=== PATIENT | male | born 2000 | race Caucasian/White ===

== ENCOUNTER 2022-04-20 18:33 | Inpatient (IN) | payer OTHER, SELFPAY ==
--- NOTE | ~2022-04-20 | US_ITS ---
EXAMINATION: US ABDOMEN LIMITED CLINICAL INFORMATION: Gallstones, elevated bilirubin. COMPARISON: None TECHNIQUE: Real-time imaging of the right upper quadrant abdominal viscera. FINDINGS: PANCREAS: Visualized portions unremarkable. LIVER: Unremarkable. GALLBLADDER: Multiple small dependent calcified gallstones without mural thickening or pericholecystic fluid. COMMON BILE DUCT: Normal in caliber measuring up to 0.4 cm in diameter. No intraluminal abnormality. RIGHT KIDNEY: 10.8 cm. Unremarkable. FREE FLUID: None. US/US abdomen limited IMPRESSION: 1. Cholelithiasis without evidence for acute cholecystitis. 2. No significant common bile duct dilatation to suggest choledocholithiasis. No other significant abnormality.
--- NOTE | ~2022-04-20 | CT_ITS ---
EXAMINATION: CT ABDOMEN AND PELVIS WITH CONTRAST CLINICAL INFORMATION: Abdominal pain with no positive Howard's sign COMPARISON: None TECHNIQUE: Multidetector volumetric images were obtained from the superior aspect of the liver through the pubic symphysis following administration 85 mL of Omnipaque 350 intravenous contrast. Sagittal and coronal reformatted images were obtained on the technologist's workstation. Oral contrast: No This CT examination was performed using dose optimization techniques as appropriate, variously including the following: *Automated exposure control *Adjustment of mA and/or kV according to patient size (this includes techniques or standardized protocols for targeted exams where dose is matched to indication/reason for exam; i.e. extremities or head) *Use of iterative reconstruction technique DLP: 973 mGy-cm FINDINGS: LUNG BASES: The visualized lung bases are unremarkable. LIVER, GALLBLADDER, AND BILIARY TREE: The liver is normal in size, shape, and attenuation. No focal hepatic lesion or biliary ductal dilatation is present. There are multiple radiopaque dependent gallstones. No wall thickening seen. PANCREAS: Unremarkable. SPLEEN: Unremarkable. ADRENAL GLANDS: Unremarkable. KIDNEYS AND URETERS: The kidneys are normal in size, shape, and attenuation. No hydronephrosis, hydroureter, or calculi seen. No perinephric stranding. BLADDER: Unremarkable. GASTROINTESTINAL TRACT: There is scattered stool and gas seen throughout the colon without significant distention. The small bowel loops are normal caliber. Appendix is normal caliber. No free fluid or free air seen. ABDOMINAL WALL: No significant hernia is appreciated. LYMPH NODES: There are small shotty retroperitoneal lymph nodes visualized. VASCULAR: Unremarkable. PELVIC VISCERA: There is no free air or free fluid. The prostate gland is normal size. No abnormal pelvic or inguinal lymphadenopathy. OSSEOUS STRUCTURES: Unremarkable. CT/CT abdomen pelvis w IV con IMPRESSION: Cholelithiasis without wall thickening. Mild constipation. Fleischner guidelines were followed.
[2022-04-20 18:40] VITALS: BP 144/93; PULSE 87; RESP 18; TEMP 36.7; O2SAT 97; BMI 40.7
--- NOTE | 2022-04-20 18:40 | ED_ITS ---
HPI - General Adult General Chief complaint: Abdominal Pain <CHRIS Dowd - Last Filed: 04/20/22 18:41> Stated complaint: Sharp abdominal pain/ SOB. from hamburger <CHRIS Dowd - Last Filed: 04/20/22 18:41> Time Seen by Provider: 04/20/22 19:17 <CHRIS Dowd - Last Filed: 04/20/22 18:41> Source: patient <Frances Walker NP - Last Filed: 04/20/22 22:24> Mode of arrival: ambulatory <Frances Walker NP - Last Filed: 04/20/22 22:24> Limitations: no limitations <Frances Walker NP - Last Filed: 04/20/22 22:24> History of Present Illness HPI narrative: 22-year-old male presents with 3 hours of right upper quadrant abdominal pain. Pain started after eating a cheeseburger. He states that he has never had pain like this before, also reports intermittent episodes of yellow brown diarrhea. Does not report any fevers or chills <Frances Walker NP - Last Filed: 04/20/22 22:24> Onset (ago): hour(s) (3 hours) <Frances Walker NP - Last Filed: 04/20/22 22:24> Location: abdomen <Frances Walker NP - Last Filed: 04/20/22 22:24> Radiation: non-radiation <Frances Walker NP - Last Filed: 04/20/22 22:24> Severity: moderate <Frances Walker NP - Last Filed: 04/20/22 22:24> Severity scale (1-10): 8 <Frances Walker NP - Last Filed: 04/20/22 22:24> Quality: aching <Frances Walker NP - Last Filed: 04/20/22 22:24> Pain Consistency: constant <Frances Walker NP - Last Filed: 04/20/22 22:24> Relieving factors: none <Frances Walker NP - Last Filed: 04/20/22 22:24> Exacerbating factors: eating and movement <Frances Walker NP - Last Filed: 04/20/22 22:24> Associated symptoms: denies other symptoms <Frances Walker NP - Last Filed: 04/20/22 22:24> Treatments prior to arrival: none <Frances Walker NP - Last Filed: 04/20/22 22:24> Related Data Home medications: Home Medications Medication Instructions Recorded Confirmed No Known Home Meds 04/20/22 04/20/22 <CHRIS Dowd - Last Filed: 04/20/22 18:41> Allergies/adverse reactions: Allergies Allergy/AdvReac Type Severity Reaction Status Date / Time No Known Allergies Allergy Verified 04/20/22 18:42 <CHRIS Dowd - Last Filed: 04/20/22 18:41> Review of Systems Review of Systems: Constitutional: No Fever, No Chills Cardiovascular: No Chest Pain, No SOB Respiratory: No Cough, No Dyspnea Gastrointestinal: No Nausea, No Vomiting, positive Diarrhea, positive right upper quadrant abdominal Pain Genitourinary: No Dysuria, No Hematuria Musculoskeletal: No joint pain, No Myalgias, No Joint Swelling Skin: No Skin lacerations, No rash Neuro: No Weakness, No Dizziness, No Headache <Frances Walker NP - Last Filed: 04/20/22 22:24> Yes all other systems are reviewed and are negative <Frances Walker NP - Last Filed: 04/20/22 22:24> [facility] Past Medical History Attestation statement: The following information was validated with the patient. <Frances Wakler NP - Last Filed: 04/20/22 22:24> Source: old records reviewed <Frances Walker NP - Last Filed: 04/20/22 22:24> Social History Social History: Social History Advance Directives: No Advance Directives Information Provided: No <CHRIS Dowd - Last Filed: 04/20/22 18:41> Physical Exam ED Vital Signs: Vital Signs - 24 hr 04/20/22 18:40 04/20/22 20:12 04/20/22 20:14 Temperature 98.1 F Pulse Rate 87 73 72 Respiratory Rate 18 Blood Pressure 144/93 H 142/75 H 138/66 Pulse Oximetry 97 Oxygen Delivery Method Room Air 04/20/22 20:14 04/20/22 20:15 04/20/22 22:14 Temperature 98.1 F Pulse Rate 72 83 Respiratory Rate 18 18 Blood Pressure 138/66 134/65 Pulse Oximetry 97 Oxygen Delivery Method Room Air BMI result Body Mass Index 40.7 <CHRIS Dowd Last Filed: 04/20/22 18:41> Vital Signs - 24 hr 04/20/22 18:40 04/20/22 20:12 04/20/22 20:14 Temperature 98.1 F Pulse Rate 87 73 72 Respiratory Rate 18 Blood Pressure 144/93 H 142/75 H 138/66 Pulse Oximetry 97 Oxygen Delivery Method Room Air 04/20/22 20:14 04/20/22 20:15 04/20/22 22:14 Temperature 98.1 F Pulse Rate 72 83 Respiratory Rate 18 18 Blood Pressure 138/66 134/65 Pulse Oximetry 97 Oxygen Delivery Method Room Air BMI result Body Mass Index 40.7 <EVETTE Albert Last Filed: 04/20/22 22:24> Appearance: Alert. Oriented X3. Mild distress. Eyes: Pupils equal, round and reactive to light. Sclera nonicteric. ENT: Pharynx normal. Neck: Normal inspection. Neck supple. CVS: Normal heart rate and rhythm. Pulses normal. Respiratory: No respiratory distress. Breath sounds normal. Abdomen: Soft and positive Howard, negative McBurney's. No distention or rigidity. Skin: Skin warm and dry. Normal skin color. Normal skin turgor. Extremities: No lower extremity edema. Gait well-balanced well coordinated. Neuro: No motor deficit. No sensory deficit. Cranial nerves 2-12 intact. <Frances Walker NP - Last Filed: 04/20/22 22:24> Course Course Course Narrative: RME performed by Ambar Wagner PA-C. Patient is a 22 year old male presenting to the emergency department with epigastric pain. Patient states that he air-fried a hamburger, ate it, and immediately had epigastric pain that radiates to the right side. Lab work ordered. Patient placed back in the waiting room pending results and room availability. <CHRIS Dowd Last Filed: 04/20/22 18:41> RME performed by Ambar Wagner PA-C. Patient is a 22 year old male presenting to the emergency department with epigastric pain. Patient states that he air-fried a hamburger, ate it, and immediately had epigastric pain that r adiates to the right side. Lab work ordered. Patient placed back in the waiting room pending results and room availability. 22-year-old male presents with right upper quadrant abdominal pain for the past 3 hours, started after eating a cheeseburger. He has not had abdominal pain like this in the past, also reports yellow brown diarrhea over the past 3 days. Physical exam indicates a positive Howard's, negative McBurney's, no distention or rigidity. Will order CT scan of abdomen and pelvis. Labs indicate an elevated white count of 15.8, bili 2.5, AST 43, ALT 42. L fluids infusing at this time. 21:30 CT scan indicates cholelithiasis without cholecystitis. Considering patient's elevated white count, will discuss with Dr. Hi on-call. Ordered for ceftriaxone, morphine, lactic and cultures. I do not believe this patient is septic at this time, heart rate 83, temperature 98.1 degrees, elevated bili AST ALT consistent with cholelithiasis. Discussion with Dr. Hi, Dr. Hi feels that this is more Gastroenterology as there is a obstruction at the ampullary Vater. Discussion with Dr. Pabon, plan is for admission with MRCP ERCP. 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 I did discuss this in detail with the patient, patient agrees with plan of care for admission. <Frances Walker [employer] - Last Filed: 04/20/22 22:24> Consultations Consultation #1: [place] <Frances Walker NP - Last Filed: 04/20/22 22:24> Time: 21:37 <Frances Walker NP - Last Filed: 04/20/22 22:24> Consultation #2: Cm <Frances Walker NP - Last Filed: 04/20/22 22:24> Time: 21:44 <Frances Walker NP - Last Filed: 01/27/23 22:24> Consultation #3: Mario <Frances Walker NP - Last Filed: 04/20/22 22:24> Time: 22:00 <Frances Walker NP - Last Filed: 04/20/22 22:24> Medications Administered Discontinued Medications Generic Name Dose Route Start Last Admin Trade Name Freq PRN Reason Stop Dose Admin Al Hydroxide/Mg Hydroxide 30 ml 04/20/22 19:23 04/20/22 20:21 Magnesium Hydrox/Alum Hydrox 30 Ml Oral.Susp PO 04/20/22 19:24 30 ml ONCE ONE Administration Belladonna Alkaloids/Phenobarbital 10 ml 04/20/22 19:23 04/20/22 20:21 Phenobarb/Hyoscy/Atropine/Scop 10 Ml Elixir PO 04/20/22 19:24 10 ml ONCE ONE Administration Sodium Chloride 1,000 mls @ 999 mls/hr 04/20/22 21:00 04/20/22 21:19 Ns IVCONT 04/20/22 22:00 999 mls/hr .Q1H1M NYA Administration Ceftriaxone Sodium 1 gm/ 50 mls @ 100 mls/hr 04/20/22 21:34 04/20/22 22:14 Sodium Chloride IV 04/20/22 22:03 100 mls/hr ONCE ONE Administration Iohexol 100 ml 04/20/22 20:50 04/20/22 20:51 Iohexol 350 Mg/Ml 100 Ml Infus..Btl IV 04/20/22 20:51 85 ml ONCE ONE Administration Lidocaine HCl 15 ml 04/20/22 19:23 04/20/22 20:20 Lidocaine Hcl Viscous 2 % 15 Ml Solution MUCOUS MEM 04/20/22 19:24 15 ml ONCE ONE Administration Morphine Sulfate 4 mg 04/20/22 21:29 04/20/22 22:14 Morphine Sulfate 4 Mg/Ml Cartridge IVPUSH 04/20/22 21:30 4 mg ONCE ONE Administration Protocol <CHRIS Dowd - Last Filed: 04/20/22 18:41> Medications Administered Discontinued Medications Generic Name Dose Route Start Last Admin Trade Name Druq PRN Reason Stop Dose Admin Al Hydroxide/Mg Hydroxide 30 ml 04/20/22 19:23 04/20/22 20:21 Magnesium Hydrox/Alum Hydrox 30 Ml Oral.Susp PO 04/20/22 19:24 30 ml ONCE ONE Administration Belladonna Alkaloids/Phenobarbital 10 ml 04/20/22 19:23 04/20/22 20:21 Phenobarb/Hyoscy/Atropine/Scop 10 Ml Elixir PO 04/20/22 19:24 10 ml ONCE ONE Administration Sodium Chloride 1,000 mls @ 999 mls/hr 04/20/22 21:00 04/20/22 21:19 Ns IVCONT 04/20/22 22:00 999 mls/hr .Q1H1M NYA Administration Ceftriaxone Sodium 1 gm/ 50 mls @ 100 mls/hr 04/20/22 21:34 04/20/22 22:14 Sodium Chloride IV 04/20/22 22:03 100 mls/hr ONCE ONE Administration Iohexol 100 ml 04/20/22 20:50 04/20/22 20:51 Iohexol 350 Mg/Ml 100 Ml Infus..Btl IV 04/20/22 20:51 85 ml ONCE ONE Administration Lidocaine HCl 15 ml 04/20/22 19:23 04/20/22 20:20 Lidocaine Hcl Viscous 2 % 15 Ml Solution MUCOUS MEM 04/20/22 19:24 15 ml ONCE ONE Administration Morphine Sulfate 4 mg 04/20/22 21:29 04/20/22 22:14 Morphine Sulfate 4 Mg/Ml Cartridge IVPUSH 04/20/22 21:30 4 mg ONCE ONE Administration Protocol <Frances Walker NP - Last Filed: 04/20/22 22:24> Medical Decision Making Differential Diagnosis Differential Diagnoses: The differential diagnosis associated with the presentation includes <Frances Walker NP - Last Filed: 04/20/22 22:24> Cholelithiasis, cholecystitis, GERD, acute abdomen <Frances Walker NP - Last Filed: 04/20/22 22:24> Admission/Observation Consideration of admission/observation: Escalation of care including admission/observation considered <Frances Walker NP - Last Filed: 04/20/22 22:24> Admission required <Frances Walker NP - Last Filed: 04/20/22 22:24> Consult Healthcare Provider Management of the patient was discussed with: Hospitalist and Moveman <Frances Walker NP - Last Filed: 04/20/22 22:24> Lab Data MDM Lab Attestation statement: I reviewed the patient's lab results. <Frances Walker NP - Last Filed: 04/20/22 22:24> Result Diagrams: 04/20/22 19:55 04/20/22 19:55 <CHRIS Dowd - Last Filed: 04/20/22 18:41> Labs: Lab Results 04/20/22 04/20/22 04/20/22 Range/Units 19:55 19:55 19:55 WBC 15.8 H (4.8-10.8) X10*3/uL RBC 4.80 (4.60-5.80) X10*6/uL Hgb 14.7 (14.0-18.0) g/dl Hct 41.6 L (42.0-52.0) % MCV 86.7 (80.0-98.0) fL MCH 30.6 (27.0-33.0) pg MCHC 35.3 (31.0-36.0) g/dl RDW 11.8 (11.0-16.0) % Plt Count 240 (160-400) X10*3/uL MPV 10.3 (9.4-12.4) fL Immature Gran % (Auto) 0.5 H (0.0-0.4) % Neut % (Auto) 88.8 H (45-73) % Lymph % (Auto) 5.7 L (20-40) % [place] % (Auto) 4.6 (2-11) % Eos % (Auto) 0.1 (0-4) % Baso % (Auto) 0.3 (0-2) % Lymph # (Auto) 0.9 L (1.2-4.9) X10*3/uL [place] # (Auto) 0.7 (0.1-1.2) X10*3/uL Eos # (Auto) 0.0 (0.0-0.4) X10*3/uL Baso # (Auto) 0.1 (0.0-0.2) X10*3/uL Abs Immat Gran (auto) 0.08 H (0.00-0.03) X10*3/uL Absolute Neuts (auto) 14.1 H (2.0-8.3) x10*3/uL Absolute Nucleated RBC 0.000 (0.0-0.012) X10*3/uL Nucleated RBC % (auto) 0.0 (0.0-0.2) /100WBC Sodium 141 (135-145) mmol/L Potassium 4.2 (3.3-5.1) mmol/L Chloride 105 (96-108) mmol/L Carbon Dioxide 27 (22-29) mmol/L Anion Gap 13 (12-20) BUN 18 H (9-16) mg/dL Creatinine 1.12 (0.5-1.4) mg/dL Estim Creat Clear Calc 132.3 Estimated GFR > 60 Random Glucose 105 (60-115) mg/dL Calcium 9.6 (8.4-10.2) mg/dL Magnesium 2.1 (1.6-2.6) mg/dL Total Bilirubin 2.5 H (0.0-1.0) mg/dL AST 43 H (5-37) U/L ALT 42 H (0-40) U/L Alkaline Phosphatase 69 (39-117) U/L Total Protein 7.0 (6.5-8.0) g/dL Albumin 4.4 (3.5-5.0) g/dL Lipase 16 (8-78) U/L Influenza Type A (PCR) NEGATIVE (Negative) Influenza Type B (PCR) NEGATIVE (Negative) RSV RNA Qual (PCR) NEGATIVE (Negative) SARS-CoV-2 RNA (RT-PCR) NEGATIVE (Negative) <CHRIS Dowd - Last Filed: 04/20/22 18:41> Lab Results 04/20/22 04/20/22 04/20/22 Range/Units 19:55 19:55 19:55 WBC 15.8 H (4.8-10.8) X10*3/uL RBC 4.80 (4.60-5.80) X10*6/uL Hgb 14.7 (14.0-18.0) g/dl Hct 41.6 L (42.0-52.0) % MCV 86.7 (80.0-98.0) fL MCH 30.6 (27.0-33.0) pg MCHC 35.3 (31.0-36.0) g/dl RDW 11.8 (11.0-16.0) % Plt Count 240 (160-400) X10*3/uL MPV 10.3 (9.4-12.4) fL Immature Gran % (Auto) 0.5 H (0.0-0.4) % Neut % (Auto) 88.8 H (45-73) % Lymph % (Auto) 5.7 L (20-40) % [place] % (Auto) 4.6 (2-11) % Eos % (Auto) 0.1 (0-4) % Baso % (Auto) 0.3 (0-2) % Lymph # (Auto) 0.9 L (1.2-4.9) X10*3/uL [place] # (Auto) 0.7 (0.1-1.2) X10*3/uL Eos # (Auto) 0.0 (0.0-0.4) X10*3/uL Baso # (Auto) 0.1 (0.0-0.2) X10*3/uL Abs Immat Gran (auto) 0.08 H (0.00-0.03) X10*3/uL Absolute Neuts (auto) 14.1 H (2.0-8.3) x10*3/uL Absolute Nucleated RBC 0.000 (0.0-0.012) X10*3/uL Nucleated RBC % (auto) 0.0 (0.0-0.2) /100WBC Sodium 141 (135-145) mmol/L Potassium 4.2 (3.3-5.1) mmol/L Chloride 105 (96-108) mmol/L Carbon Dioxide 27 (22-29) mmol/L Anion Gap 13 (12-20) BUN 18 H (9-16) mg/dL Creatinine 1.12 (0.5-1.4) mg/dL Estim Creat Clear Calc 132.3 Estimated GFR > 60 Random Glucose 105 (60-115) mg/dL Calcium 9.6 (8.4-10.2) mg/dL Magnesium 2.1 (1.6-2.6) mg/dL Total Bilirubin 2.5 H (0.0-1.0) mg/dL AST 43 H (5-37) U/L ALT 42 H (0-40) U/L Alkaline Phosphatase 69 (39-117) U/L Total Protein 7.0 (6.5-8.0) g/dL Albumin 4.4 (3.5-5.0) g/dL Lipase 16 (8-78) U/L Influenza Type A (PCR) NEGATIVE (Negative) Influenza Type B (PCR) NEGATIVE (Negative) RSV RNA Qual (PCR) NEGATIVE (Negative) SARS-CoV-2 RNA (RT-PCR) NEGATIVE (Negative) <Frances Walker NP - Last Filed: 04/20/22 22:24> Independent Interpretation I performed an independent interpretation of an: CT Scan <Frances Walker NP - Last Filed: 04/20/22 22:24> Radiology Impression Discussion of test interpretation with radiology: I have reviewed the radiologist's reading. <Frances Walker NP - Last Filed: 04/20/22 22:24> Radiologist Impression: FINDINGS: LUNG BASES: The visualized lung bases are unremarkable.? LIVER, GALLBLADDER, AND BILIARY TREE: The liver is normal in size, shape, and attenuation. No focal hepatic lesion or biliary ductal dilatation is present. There are multiple radiopaque dependent gallstones. No wall thickening seen.? PANCREAS: Unremarkable.? SPLEEN: Unremarkable.? ADRENAL GLANDS: Unremarkable.? KIDNEYS AND URETERS: The kidneys are normal in size, shape, and attenuation. No hydronephrosis, hydroureter, or calculi seen. No perinephric stranding. ? BLADDER: Unremarkable.? GASTROINTESTINAL TRACT: There is scattered stool and gas seen throughout the colon without significant distention. The small bowel loops are normal caliber. Appendix is normal caliber. No free fluid or free air seen. ABDOMINAL WALL: No significant hernia is appreciated.? LYMPH NODES: There are small shotty retroperitoneal lymph nodes visualized. VASCULAR: Unremarkable. PELVIC VISCERA: There is no free air or free fluid. The prostate gland is normal size. No abnormal pelvic or inguinal lymphadenopathy.? OSSEOUS STRUCTURES: Unremarkable.? CT/CT abdomen pelvis w IV con IMPRESSION: Cholelithiasis without wall thickening. ? Mild constipation.? ? Fleischner guidelines were followed. <Frances Walker NP - Last Filed: 04/20/22 22:24> Independent Historian Clinical information obtained from an independent historian. History obtained from or confirmed by: Parent <Frances Walker NP - Last Filed: 04/20/22 22:24> External Record Review External record reviewed: Outpatient record <Frances Walker NP - Last Filed: 04/20/22 22:24> Prescription Management I considered prescription management with: Pain Medication and Antibiotic <Frances Walker NP - Last Filed: 04/20/22 22:24> Critical Care Time Critical Care Time Critical Care Time: Yes <Frances Walker NP - Last Filed: 04/20/22 22:24> Total Critical Care Time: 45 <Frances Walker NP - Last Filed: 04/20/22 22:24> Attestation: I have personally provided critical care time exclusive of time spent on separately billable procedures. Time includes review of laboratory data, radiology results, discussion with consultants, and monitoring for potential decompensation. Interventions were performed as documented. <Frances Walker NP - Last Filed: 04/20/22 22:24> Discharge Plan Discharge Clinical Impression: Cholelithiasis with biliary obstruction <CHRIS Dowd - Last Filed: 04/20/22 18:41> Patient Disposition: Admitted As Inpatient <CHRIS Dowd - Last Filed: 04/20/22 18:41>
[2022-04-20 20:00] LABS: MANUAL DIFF FLAG NO
[2022-04-20 20:01] LABS: Basophils Absolute Auto 0.1 X10*3/uL (0.0-0.2); Basophils Percent Auto 0.3 % (0-2); Eosinophils Percent Auto 0.1 % (0-4); Hematocrit 41.6 % (42.0-52.0); Hemoglobin 14.7 g/dl (14.0-18.0); Imm Gran Abs Auto 0.08 X10*3/uL (0.00-0.03); Imm Gran Pct Auto 0.5 % (0.0-0.4); Lymphocytes Absolute Auto 0.9 X10*3/uL (1.2-4.9); Lymphocytes Percent Auto 5.7 % (20-40); Mean Corpuscular HGB Conc 35.3 g/dl (31.0-36.0); Mean Corpuscular Hemoglobin 30.6 pg (27.0-33.0); Mean Corpuscular Volume 86.7 fL (80.0-98.0); Mean Platelet Volume 10.3 fL (9.4-12.4); Monocytes Absolute Auto 0.7 X10*3/uL (0.1-1.2); Monocytes Percent Auto 4.6 % (2-11); Neutrophils Absolute Auto 14.1 x10*3/uL (2.0-8.3); Neutrophils Percent Auto 88.8 % (45-73); Platelet Count 240 X10*3/uL (160-400); Red Cell Distribution Width 11.8 % (11.0-16.0); White Blood Count 15.8 X10*3/uL (4.8-10.8)
[2022-04-20 20:12] VITALS: BP 142/75; PULSE 73
[2022-04-20 20:14] VITALS: BP 138/66; PULSE 72; RESP 18; TEMP 36.7; O2SAT 97
[2022-04-20 20:15] VITALS: BP 134/65; PULSE 83
[2022-04-20] MEDS: Lidocaine HCl Viscous 2 % 15 ML SOLUTION MUCOUS MEM (20:20)
[2022-04-20] MEDS: Magnesium Hydrox/Alum Hydrox 30 ML ORAL.SUSP PO (20:21)
[2022-04-20] MEDS: PHENobarb/Hyoscy/Atropine/Scop 10 ML ELIXIR PO (20:21)
--- NOTE | 2022-04-20 20:24 | PC.NURSE ---
Pt medicated per MAY for RUQ/Epigastric pain. he remains alert, oriented, skin pwd, respirations even and unlabored without distress. Pt's mother is at bedside. Pt reported some dizziness upon going from a laying to sitting position, endorses fluid intake today although he states may not have been as much as normal. Orthostatic vitals taken without acute findings. Pt has call elizondo in reach and aware to ring with any needs, concerns and is awaiting results and dispo from [employer]WIFE.
[2022-04-20 20:28] LABS: Alanine Aminotransferase 42 U/L (0-40); Albumin Level 4.4 g/dL (3.5-5.0); Alkaline Phosphatase 69 U/L (39-117); Anion Gap 13 (12-20); Aspartate Amino Transferase 43 U/L (5-37); Bilirubin Total 2.5 mg/dL (0.0-1.0); Blood Urea Nitrogen 18 mg/dL (9-16); Calcium 9.6 mg/dL (8.4-10.2); Carbon Dioxide 27 mmol/L (22-29); Chloride 105 mmol/L (96-108); Creatinine Clr Calc Pharmacy 132.3; Estimated Glomerular Filt Rate > 60; Glucose Random 105 mg/dL (60-115); Lipase 16 U/L (8-78); Magnesium 2.1 mg/dL (1.6-2.6); Potassium 4.2 mmol/L (3.3-5.1); Sodium 141 mmol/L (135-145)
[2022-04-20 20:39] LABS: Influenza A PCR NEGATIVE (Negative); Influenza B PCR NEGATIVE (Negative); Resp Syncy Virus RNA Qual PCR NEGATIVE (Negative); SARS COV2 PCR INHOUSE NEGATIVE (Negative)
[2022-04-20] MEDS: iohexoL 350 MG/ML 100 ML INFUS..BTL IV (20:51)
[2022-04-20] MEDS: 0.9 % Sodium Chloride 1,000 ML 999 ML IVCONT (21:19)
--- NOTE | 2022-04-20 21:25 | PC.NURSE ---
RN to bedside to hang IV fluids per MAR. Pt found in stretcher without distress noted, reporting resolution in pain s/p previous med administration. Pt and mother/bedside visitor made aware of reasoning for IVF and their questions were answered. Pt awaiting results and dispo from [employer].
[2022-04-20 22:14] VITALS: RESP 18
[2022-04-20] MEDS: Morphine Sulfate 4 MG/ML CARTRIDGE IVPUSH (22:14)
[2022-04-20] MEDS: cefTRIAXone sodium 1 GM in 0.9 % Sodium Chloride 50 ML IV (22:14)
[2022-04-20 22:23] LABS: Lactic Acid 0.6 mmol/L (0.5-2.0)
--- NOTE | 2022-04-20 22:23 | PHA.MEDREC ---
PATIENT ON NO MEDICATIONS Pharmacy Consult ? Medication Reconciliation Pharmacy has completed the medication reconciliation.
[2022-04-20] MEDS: Dextrose 5 % and Lactated Ring 1,000 ML 125 ML IVCONT (23:16)
--- NOTE | 2022-04-20 23:36 | PC.NURSE ---
report given to batool valencia
--- NOTE | 2022-04-21 02:53 | PC.NURSE ---
this rn assumed care of pt @ 0254. pt family member at bedside
[2022-04-21 04:34] VITALS: BP 104/55; PULSE 55; RESP 18; TEMP 36.9; O2SAT 98
[2022-04-21 05:37] VITALS: BP 135/60; PULSE 54; RESP 18; TEMP 36.3; O2SAT 95
[2022-04-21 05:45] VITALS: BMI 40.9
[2022-04-21 06:15] LABS: MANUAL DIFF FLAG NO
[2022-04-21 06:23] LABS: Basophils Absolute Auto 0.1 X10*3/uL (0.0-0.2); Basophils Percent Auto 0.6 % (0-2); Eosinophils Absolute Auto 0.1 X10*3/uL (0.0-0.4); Eosinophils Percent Auto 0.7 % (0-4); Hematocrit 38.6 % (42.0-52.0); Hemoglobin 13.5 g/dl (14.0-18.0); Imm Gran Abs Auto 0.07 X10*3/uL (0.00-0.03); Imm Gran Pct Auto 0.8 % (0.0-0.4); Lymphocytes Absolute Auto 1.7 X10*3/uL (1.2-4.9); Mean Corpuscular Hemoglobin 30.7 pg (27.0-33.0); Mean Corpuscular Volume 87.7 fL (80.0-98.0); Monocytes Percent Auto 11.9 % (2-11); Neutrophils Absolute Auto 5.5 x10*3/uL (2.0-8.3); Platelet Count 233 X10*3/uL (160-400); Red Cell Distribution Width 11.7 % (11.0-16.0); White Blood Count 8.3 X10*3/uL (4.8-10.8)
[2022-04-21 06:55] LABS: Alanine Aminotransferase 39 U/L (0-40); Albumin Level 3.8 g/dL (3.5-5.0); Alkaline Phosphatase 61 U/L (39-117); Anion Gap 12 (12-20); Aspartate Amino Transferase 25 U/L (5-37); Bilirubin Direct 0.5 mg/dL (0.0-0.5); Bilirubin Total 1.8 mg/dL (0.0-1.0); Blood Urea Nitrogen 15 mg/dL (9-16); Carbon Dioxide 25 mmol/L (22-29); Chloride 107 mmol/L (96-108); Creatinine Clr Calc Pharmacy 159.8; Estimated Glomerular Filt Rate > 60; Glucose Random 111 mg/dL (60-115); Potassium 3.8 mmol/L (3.3-5.1); Sodium 140 mmol/L (135-145); Total Protein 6.1 g/dL (6.5-8.0)
[2022-04-21] MEDS: Dextrose 5 % and Lactated Ring 1,000 ML 125 ML IVCONT ×3 (07:39→23:09)
[2022-04-21 08:00] VITALS: BP 118/59; PULSE 64; RESP 16; TEMP 36.8; O2SAT 95
--- NOTE | 2022-04-21 08:26 | PM.HPGS ---
History of Present Illness History of Present Illness Date of Service: 04/21/22 Chief complaint: choleducholihithiasis, cholecystitis Narrative: Ginette Regalado is a 22 year old male Presenting with complaints of epigastric and right upper quadrant pain. The pain began approximately an hour after eating a hamburger yesterday. Pain was described as sharp and nonradiating located mainly in the epigastrium, 10/10 in severity. He denies any previous episodes of similar pain in the past. Pain was not associated with nausea, vomiting but was associated with chills and low-grade fever. He subsequently presented to the emergency department was noted to be tender in the quadrant. Laboratories revealed an elevated WBC and elevated bilirubin and transaminases. CT abdomen and pelvis revealed multiple gallstones within the gallbladder with no evidence of wall thickening or pericholecystic fluid. A possible common bile duct stone is noted to my reading of the exam at the distal common bile duct. This morning the patient does feel improved with minimal abdominal pain. Repeat laboratories show an improvement in the bilirubin level and normalization of transaminases. Review of Systems Review of Systems: Yes all other systems are reviewed and are negative Constitutional: Constitutional: Reports chills, Reports fever(s), Denies headache(s), Denies poor appetite and Denies weakness ENT: Denies headache(s) Cardiovascular: Cardiovascular: Denies chest pain, Denies irregular heart rhythm, Denies palpitations and Denies dyspnea Respiratory: Respiratory: Denies cough, Denies excessive phlegm production and Denies dyspnea Gastrointestinal: Gastrointestinal: Reports as per HPI, Reports abdominal pain, Denies bloating, Denies change in bowel habits, Denies constipation, Denies heartburn, Denies diarrhea, Denies nausea and Denies vomiting Genitourinary: Genitourinary: Denies difficulty urinating and Denies urinary frequency Musculoskeletal: Musculoskeletal: Denies back pain, Denies muscle weakness and Denies numbness Integumentary/Breasts: Skin/Breast: Denies changing lesions and Denies unusual bruising Neurologic: Denies headache(s), Denies numbness, Denies paresthesias and Denies weakness Psychiatric: Psychiatric: Denies anxiety and Denies depression Endocrine: Endocrine: Denies palpitations Hematologic/Lymphatic: Hematologic/Lymphatic: Denies lymphadenopathy PMFSH Past Medical History Medical History Pilonidal cyst with abscess Social History Social History Household Members: Family Housing: House Do you presently have visiting nurse or other home services: No Patient Tobacco Use Status: Never used Tobacco Smoked in Last 30 Days: No e-Cigarette/Vaping Use: Never Used Second Hand Smoke Exposure: No Use of substances other than those prescribed or required for medical reasons: No Currently Displaying Signs/Symptoms of Drug Intoxication Withdrawal: No Any prior treatment program specific to substance use: No Have you been hit, kicked, punched, or otherwise hurt by someone within the past year? If so, by whom?: No Do you feel safe in your current relationship?: No Current Relationship Is there a partner from a previous relationship who is making you feel unsafe now?: No Are you made to feel afraid or neglected: No Advance Directives: No Advance Directives Information Provided: No Do you have thoughts of harming others: None Do you have a plan to hurt others: No Plan Recently lost weight without trying: No Eating poorly because of decreased appetite: No Nutrition Risks: No Nutritional Risk Poor oral hygiene: No Meds Allergies Allergy/AdvReac Type Severity Reaction Status Date / Time No Known Allergies Allergy Verified 04/20/22 18:42 Active Medications: Current Medications Acetaminophen (Acetaminophen 325 Mg Tablet) 650 mg PO QID PRN PRN Reason: headache, temp > 101 Hydromorphone HCl (Hydromorphone Hcl 0.5 Mg/0.5 Ml Syringe) 0.5 mg IVPUSH Q3H PRN; Protocol PRN Reason: Pain, Severe (Pain Scale 7-10) Dextrose/Lactated Ringer's (D5lr) 1,000 mls @ 125 mls/hr IVCONT .Q8H [facility] Last Admin: 04/21/22 07:39 Dose: 125 mls/hr Ondansetron HCl (Ondansetron Hcl 4 Mg/2 Ml Vial) 4 mg IVPUSH Q8H PRN PRN Reason: Nausea Oxycodone HCl (Oxycodone Hcl Immed Release 5 Mg Tablet) 5 mg PO Q6H PRN PRN Reason: Pain, Moderate (Pain Scale 4-6 Pharmacy Consult (Consult Rx Perform Med Rec) 1 each MISCELLANE ONCE PRN PRN Reason: Consult order Sodium Chloride (0.9 % Sodium Chloride Flush 3 Ml Syringe) 3 ml IVFLUSH QSHIFT [facility] Last Admin: 04/21/22 07:38 Dose: Not Given Zolpidem Tartrate (Zolpidem Tartrate 5 Mg Tablet) 5 mg PO BEDTIME PRN PRN Reason: Insomnia Home Medications Medication Instructions Recorded Confirmed Last Taken Type No Known Home Meds 04/20/22 04/20/22 Unknown History Physical Exam Vital Signs: Vital Signs: Last Vital Signs Temp 98.3 F 04/21/22 08:00 Pulse 64 04/21/22 08:00 Resp 16 04/21/22 08:00 BP 118/59 L 04/21/22 08:00 Pulse Ox 95 04/21/22 08:00 O2 Del Method 04/21/22 08:00 BMI result Body Mass Index 40.9 Const: General: cooperative and no acute distress Nutritional Appearance: well nourished Orientation/consciousness: patient oriented x3 Limitations: no limitations HEENT: Head: Yes normocephalic and Yes atraumatic Ears: hearing grossly normal bilaterally Resp: Effort & Inspection: normal respiratory effort, no audible wheezes, no cough and no respiratory distress Cardio: Jugular venous distension: no JVD GI: Inspection: Yes normal to inspection Palpation (GI): Soft to palpation, nontender, no guarding, not rigid and No hepatosplenomegaly present Percussion: Yes normal to percussion Auscultation: normal bowel sounds Skin: Other: Warm, dry, no rash Neuro: General: patient oriented x3 Extrem: General: Yes no clubbing, cyanosis or edema Results Results Labs: Short CBC 04/20/22 04/21/22 Range/Units 19:55 05:48 WBC 15.8 H 8.3 (4.8-10.8) X10*3/uL Hgb 14.7 13.5 L (14.0-18.0) g/dl Hct 41.6 L 38.6 L (42.0-52.0) % Plt Count 240 233 (160-400) X10*3/uL BMP 04/20/22 04/21/22 19:55 05:48 Sodium 141 140 Potassium 4.2 3.8 Chloride 105 107 Carbon Dioxide 27 25 BUN 18 H 15 Creatinine 1.12 0.93 Calcium 9.6 9.0 D Liver Function 04/20/22 04/21/22 Range/Units 19:55 05:48 Total Bilirubin 2.5 H 1.8 H (0.0-1.0) mg/dL Direct Bilirubin 0.5 (0.0-0.5) mg/dL AST 43 H 25 (5-37) U/L ALT 42 H 39 (0-40) U/L Alkaline Phosphatase 69 61 (39-117) U/L Albumin 4.4 3.8 (3.5-5.0) g/dL Additional studies: Assessment and Plan (1) Cholelithiasis with biliary obstruction: Status: Acute Plan 22-year-old male patient presenting with complaints of acute abdominal pain in the right upper quadrant and epigastrium found to have elevated WBC and gallstones within the gallbladder. Liver function tests were also elevated suggestive of a common bile duct stone. CT does reveal a possible stone at the distal common bile duct which may have passed as the liver function tests this morning are improving. I recommended MRCP to evaluate for common bile duct stone however this service is not available over the weekend. I will consult Gastroenterology for their assessment and will repeat LFTs in the a.m.. If cleared from GI standpoint and normalization of LFTs will proceed to laparoscopic or possible open cholecystectomy. The patient understands and agrees with the plan. Time Spent With Patient Time: Total time managing care of this patient today ____ minutes. Quality Stroke Does the patient have a stroke diagnosis?: No VTE Prior VTE?: No VTE Risk Level:: Surgical - low VTE Device Contraindication: N/A - Device Ordered VTE Drug Contraindication: Treatment Not Indicated Procedures Date of Service Date of Service: 04/21/22
--- NOTE | 2022-04-21 11:09 | P.CNGI_ITS ---
History of Present Illness Data of Consult Service Date: 04/21/22 Requesting physician: Conrad Hi Primary Care Provider: MD JAY Sifuentes Reason for consult: Elevated LFTs This is a 22-year-old gentleman with obesity, BMI 41, who presented to the emergency room last evening for right upper quadrant abdominal pain that started after eating a cheeseburger. Gastroenterology has been consulted for elevated LFTs and question of CBD stone. History was obtained from the patient, who states that yesterday evening, he was having a cheeseburger, and within 15-20 mins, he started developing severe epigastric and right upper quadrant pain that he describes as sharp. No repo rted radiation. Associated with chills, but no nausea or vomiting. No prior history of similar pain. When he presented to the emergency room, he was noted to be hypertensive, but otherwise widely stable at and afebrile. Labs were significant for an elevated white count of 15.8 with neutrophilic shift. LFTs with AST 43, ALT 42 and total bilirubin 2.5 with normal alkaline phosphatase. Lipase was normal as well. He underwent CT abdomen pelvis with contrast that showed nondilated bile duct with possibly small punctate stone in the distal CBD versus duodenal diverticulum. He was also noted to have some retroperitoneal lymph node prominence. Gallbladder has multiple radiopaque stones without any cholecystic fluid or gallbladder wall thickening. This morning, on evaluation, he reports since getting pain medication last night in the emergency room, his pain has dissipated. Feels ready to eat. Labs show improvement in transaminases. Bilirubin down to 1.8. CT imaging reviewed, ? punctate stone in distal CBD. No bile duct dilation. Normal appearing pancreas Review of Systems Review of Systems: Yes all other systems are reviewed and are negative PMFSH Past Medical History Medical History Pilonidal cyst with abscess Social History Social History Household Members: Family Housing: House Do you presently have visiting nurse or other home services: No Patient Tobacco Use Status: Never used Tobacco Smoked in Last 30 Days: No e-Cigarette/Vaping Use: Never Used Second Hand Smoke Exposure: No Use of substances other than those prescribed or required for medical reasons: No Currently Displaying Signs/Symptoms of Drug Intoxication Withdrawal: No Any prior treatment program specific to substance use: No Have you been hit, kicked, punched, or otherwise hurt by someone within the past year? If so, by whom?: No Do you feel safe in your current relationship?: No Current Relationship Is there a partner from a previous relationship who is making you feel unsafe now?: No Are you made to feel afraid or neglected: No Advance Directives: No Advance Directives Information Provided: No Do you have thoughts of harming others: None Do you have a plan to hurt others: No Plan Recently lost weight without trying: No Eating poorly because of decreased appetite: No Nutrition Risks: No Nutritional Risk Poor oral hygiene: No Meds Allergies Allergy/AdvReac Type Severity Reaction Status Date / Time No Known Allergies Allergy Verified 04/20/22 18:42 Active Medications: Current Medications Acetaminophen (Acetaminophen 325 Mg Tablet) 650 mg PO QID PRN PRN Reason: headache, temp > 101 Hydromorphone HCl (Hydromorphone Hcl 0.5 Mg/0.5 Ml Syringe) 0.5 mg IVPUSH Q3H PRN; Protocol PRN Reason: Pain, Severe (Pain Scale 7-10) Dextrose/Lactated Ringer's (D5lr) 1,000 mls @ 125 mls/hr IVCONT .Q8H [facility] Last Admin: 04/21/22 07:39 Dose: 125 mls/hr Ondansetron HCl (Ondansetron Hcl 4 Mg/2 Ml Vial) 4 mg IVPUSH Q8H PRN PRN Reason: Nausea Oxycodone HCl (Oxycodone Hcl Immed Release 5 Mg Tablet) 5 mg PO Q6H PRN PRN Reason: Pain, Moderate (Pain Scale 4-6 Pharmacy Consult (Consult Rx Perform Med Rec) 1 each MISCELLANE ONCE PRN PRN Reason: Consult order Sodium Chloride (0.9 % Sodium Chloride Flush 3 Ml Syringe) [facility] Last Admin: 04/21/22 07:38 Dose: Not Given Zolpidem Tartrate (Zolpidem Tartrate 5 Mg Tablet) 5 mg PO BEDTIME PRN PRN Reason: Insomnia Home Medications Medication Instructions Recorded Confirmed Last Taken Type No Known Home Meds 04/20/22 04/20/22 Unknown History Physical Exam Vital Signs: Vital Signs: Last Vital Signs Temp 98.3 F 04/21/22 08:00 Pulse 64 04/21/22 08:00 Resp 16 04/21/22 08:00 BP 118/59 L 04/21/22 08:00 Pulse Ox 95 04/21/22 08:00 O2 Del Method 04/21/22 08:00 BMI result Body Mass Index 40.9 Gen appear: No acute distress, well nourished HEENT: no icterus, no cervical lymphadenopathy Chest: No overt resp distress CVS: S1/S2, regular Abd: soft, nontender, nondistended Psych: Stable affect, answering questions appropriately Neuro: A/Ox3 noted to move all extremities spontaneously Ext: no peripheral edema Results Labs 04/21/22 05:48 04/21/22 05:48 Labs: Short CBC 04/20/22 04/21/22 Range/Units 19:55 05:48 WBC 15.8 H 8.3 (4.8-10.8) X10*3/uL Hgb 14.7 13.5 L (14.0-18.0) g/dl Hct 41.6 L 38.6 L (42.0-52.0) % Plt Count 240 233 (160-400) X10*3/uL BMP 04/20/22 04/21/22 19:55 05:48 Sodium 141 140 Potassium 4.2 3.8 Chloride 105 107 Carbon Dioxide 27 25 BUN 18 H 15 Creatinine 1.12 0.93 Calcium 9.6 9.0 D Liver Function 04/20/22 04/21/22 Range/Units 19:55 05:48 Total Bilirubin 2.5 H 1.8 H (0.0-1.0) mg/dL Direct Bilirubin 0.5 (0.0-0.5) mg/dL AST 43 H 25 (5-37) U/L ALT 42 H 39 (0-40) U/L Alkaline Phosphatase 69 61 (39-117) U/L Albumin 4.4 3.8 (3.5-5.0) g/dL Assessment and Plan (1) Symptomatic cholelithiasis: Status: Acute Plan Presentation consistent with biliary colic versus CBD stone that spontaneously passed. Patient currently symptom free and LFTs are reassuring as well. Given findings on CT scan, agree with proceeding with MRCP. Plan: -can have clear liquid diet/ low-fat diet from GI standpoint -MRI abdomen without contrast with MRCP reformats -if MRI demonstrates choledocholithiasis, will need an ERCP for biliary clearance -otherwise, should proceed with interval cholecystectomy -daily LFTs Thank you for allowing me to participate in his care. Please feel free to reach out for any questions or concerns. Time Spent With Patient Time: Total time managing care of this patient today ____ minutes. Procedures Date of Service Date of Service: 04/21/22
--- NOTE | 2022-04-21 14:00 | MHC.CM.PN ---
Lives with mother, previously independent; no prior services or equipment. Employed as a local truck driver. Plan is home with mother via mother. Patient will need a letter for work for required time away and anticipated time of return. CM to follow.
--- NOTE | 2022-04-21 14:06 | MHC.CM.PN ---
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 This CM put [facility] list per mother's request in patient's room. CM to follow.
[2022-04-21 15:40] VITALS: BP 151/70; PULSE 66; RESP 19; TEMP 36.8; O2SAT 96
[2022-04-21 19:34] VITALS: BP 133/76; PULSE 58; RESP 19; TEMP 36.3; O2SAT 97
[2022-04-22 04:00] VITALS: BP 104/51; PULSE 58; RESP 18; TEMP 35.7; O2SAT 97
[2022-04-22 07:01] LABS: Alanine Aminotransferase 33 U/L (0-40); Albumin Level 3.8 g/dL (3.5-5.0); Alkaline Phosphatase 61 U/L (39-117); Aspartate Amino Transferase 22 U/L (5-37); Bilirubin Direct 0.5 mg/dL (0.0-0.5); Bilirubin Total 2.7 mg/dL (0.0-1.0); Total Protein 6.3 g/dL (6.5-8.0)
[2022-04-22 08:00] VITALS: BP 123/73; PULSE 64; RESP 16; TEMP 36.3; O2SAT 98
[2022-04-22] MEDS: Dextrose 5 % and Lactated Ring 1,000 ML 125 ML IVCONT ×3 (08:12→23:14)
--- NOTE | 2022-04-22 10:40 | PM.PNGS ---
Subjective Subjective Date of Service: 04/22/22 Interval history: Overall patient feels great with no current abdominal pain. He is tolerating clear liquids without nausea or vomiting or increased abdominal pain. Physical Exam Vital Signs: Vital Signs: Last Vital Signs Temp 97.3 F 04/22/22 08:00 Pulse 64 04/22/22 08:00 Resp 16 04/22/22 08:00 BP 123/73 04/22/22 08:00 Pulse Ox 98 04/22/22 08:00 O2 Del Method 04/22/22 08:00 BMI result Body Mass Index 40.9 Const: General: cooperative and no acute distress Nutritional Appearance: well nourished Orientation/consciousness: patient oriented x3 Limitations: no limitations Resp: Effort & Inspection: normal respiratory effort, no audible wheezes, no cough and no respiratory distress GI: Inspection: Yes normal to inspection Palpation (GI): Soft to palpation, nontender, no guarding, not rigid and No hepatosplenomegaly present Percussion: Yes normal to percussion Auscultation: normal bowel sounds Skin: Other: Warm, dry, no rash Neuro: General: patient oriented x3 Extrem: General: Yes no clubbing, cyanosis or edema Objective Data Active Medications Acetaminophen (Acetaminophen 325 Mg Tablet) 650 mg PO QID PRN PRN Reason: headache, temp > 101 Hydromorphone HCl (Hydromorphone Hcl 0.5 Mg/0.5 Ml Syringe) 0.5 mg IVPUSH Q3H PRN; Protocol PRN Reason: Pain, Severe (Pain Scale 7-10) Dextrose/Lactated Ringer's (D5lr) 1,000 mls @ 125 mls/hr IVCONT .Q8H [facility] Last Admin: 04/22/22 08:12 Dose: 125 mls/hr Documented By: LYNNETTE Ondansetron HCl (Ondansetron Hcl 4 Mg/2 Ml Vial) 4 mg IVPUSH Q8H PRN PRN Reason: Nausea Oxycodone HCl (Oxycodone Hcl Immed Release 5 Mg Tablet) 5 mg PO Q6H PRN PRN Reason: Pain, Moderate (Pain Scale 4-6 Pharmacy Consult (Consult Rx Perform Med Rec) 1 each MISCELLANE ONCE PRN PRN Reason: Consult order Sodium Chloride (0.9 % Sodium Chloride Flush 3 Ml Syringe) 3 ml IVFLUSH QSHIFT [facility] Last Admin: 04/22/22 08:12 Dose: Not Given Documented By: LYNNETTE Non-Admin Reason: IV Running Zolpidem Tartrate (Zolpidem Tartrate 5 Mg Tablet) 5 mg PO BEDTIME PRN PRN Reason: Insomnia Labs 04/21/22 05:48 04/21/22 05:48 Labs: Laboratory Results - last 24 hr 04/22/22 05:56 Total Bilirubin 2.7 H Direct Bilirubin 0.5 AST 22 ALT 33 Alkaline Phosphatase 61 Total Protein 6.3 L Albumin 3.8 Microbiology Microbiology Results: Microbiology 04/20/22 22:07 Blood Culture - Preliminary Blood - Venous No growth after 24 hours. 04/20/22 22:07 Blood Culture - Preliminary Blood - Venous No growth after 24 hours. Procedures Date of Service Date of Service: 04/22/22 Progress Note: A&P Assessment and plan (1) Symptomatic cholelithiasis: Status: Acute Plan Overall patient is much improved with decreased abdominal pain minimal to no tenderness to palpation. Laboratories however revealed an elevated total bilirubin at 2.7, but a normal direct bilirubin. Patient is scheduled for MRI to evaluate for common duct stone, will request ultrasound to look for ductal dilatation. Time Spent With Patient Time: Total time managing care of this patient today ____ minutes. Quality Stroke Does the patient have a stroke diagnosis?: No VTE Prior VTE?: No VTE Risk Level:: Surgical - low VTE Device Contraindication: N/A - Device Ordered VTE Drug Contraindication: Treatment Not Indicated
--- NOTE | 2022-04-22 12:00 | P.PNGI_ITS ---
Subjective Subjective Date of Service: 04/22/22 Critical Care Time (minutes): 0 Comment: Pt seen and evaluated at bedside. Reports no abd pain, N or V. Tolerated liquids without any recurrence of abd pain. Physical Exam Vital Signs: Vital Signs: Last Vital Signs Temp 97.3 F 04/22/22 08:00 Pulse 64 04/22/22 08:00 Resp 16 04/22/22 08:00 BP 123/73 04/22/22 08:00 Pulse Ox 98 04/22/22 08:00 O2 Del Method 04/22/22 08:00 BMI result Body Mass Index 40.9 Gen appear: with obesity, NAD Abd: soft, nontender, nondistended, no burns's Objective Data Labs 04/21/22 05:48 04/21/22 05:48 Labs: Laboratory Results - last 24 hr 04/22/22 05:56 Total Bilirubin 2.7 H Direct Bilirubin 0.5 AST 22 ALT 33 Alkaline Phosphatase 61 Total Protein 6.3 L Albumin 3.8 Microbiology Microbiology Results: Microbiology 04/20/22 22:07 Blood - Venous Blood Culture - Preliminary No growth after 24 hours. 04/20/22 22:07 Blood - Venous Blood Culture - Preliminary No growth after 24 hours. Procedures Date of Service Date of Service: 04/22/22 Progress Note: A&P Assessment and plan (1) Symptomatic cholelithiasis: Status: Acute (2) Indirect hyperbilirubinemia: Status: Acute Plan Pt pain free now. Likely had biliary colic vs passed stone. No biliary dilation noted on CT. Has NON-obstructive jaundice given normal LFTs including ALP and nondilated ducts. Suspect has benign indirect hyperbili possibly from [place]. Plan: - Check retic count, LDH and hapto to r/o hemolysis (although low suspicion)-- orders placed - Can consider US abd if clinical suspicion for CBD stone remains (MRI not available over the weekend) Time Spent With Patient Time: Total time managing care of this patient today ____ minutes. Quality Stroke Does the patient have a stroke diagnosis?: No VTE Prior VTE?: No VTE Risk Level:: Surgical - low VTE Device Contraindication: N/A - Device Ordered VTE Drug Contraindication: Treatment Not Indicated
--- NOTE | 2022-04-22 12:01 | MHC.CM.PN ---
CM MET WITH PT AND FAMILY AT THEIR REQUEST THEY INDICATED PT NEEDS A PCP HOWEVER THEY ARE UNSURE HOW TO OBTAIN ONE CM PROVIDED INFORMATION ON THE PROCESS AND INFORMED THEM THE PCPS ON [facility]AMP[facility] WERE NOT TAKING NEW PTS AT THIS TIME THEY ARE WILLING TO GO TO OTHER LOCATIONS AND WILL CALL ON SATURDAY
[2022-04-22 12:14] LABS: Immature Retic Fraction 10.4 % (2.3-13.4); Retic HGB Equivalent 36.9 pg (30.0-35.0); Reticulocyte Percent 1.9 % (0.5-1.8); Reticulocytes Absolute 0.085 X10*6/uL (0.026-0.095)
[2022-04-22 12:40] LABS: Lactate Dehydrogenase 182 U/L (118-273)
[2022-04-22 16:00] VITALS: BP 129/70; PULSE 57; RESP 18; TEMP 36.4; O2SAT 97
[2022-04-22] MEDS: 0.9 % Sodium Chloride Flush 3 ML SYRINGE IVFLUSH (16:23)
[2022-04-22 20:00] VITALS: BP 135/68; PULSE 53; RESP 18; TEMP 36.5; O2SAT 98
[2022-04-23] VITALS (17 sets, daily range): BP systolic 120–175; BP diastolic 57–99; PULSE 56–75; RESP 15–23; TEMP 36.4–36.8; O2SAT 95–100; BMI 40.7
[2022-04-23] MEDS: Dextrose 5 % and Lactated Ring 1,000 ML 125 ML IVCONT (06:18)
--- NOTE | 2022-04-23 07:08 | P.PNGS_ITS ---
Subjective Subjective Date of Service: 04/23/22 Interval history: patient feels well this morning denies any abdominal pain, tolerated liquids yesterday without difficulty. Ultrasound negative for ductal dilatation. Gallstones without wall thickening. Physical Exam Vital Signs: Vital Signs: Last Vital Signs Temp 97.7 F 04/23/22 03:35 Pulse 70 04/23/22 03:35 Resp 18 04/23/22 03:35 BP 120/60 04/23/22 03:35 Pulse Ox 98 04/23/22 03:35 O2 Del Method 04/23/22 03:35 BMI result Body Mass Index 40.9 Const: General: no acute distress Nutritional Appearance: well nourished Orientation/consciousness: patient oriented x3 Limitations: no limitations Resp: Effort & Inspection: normal respiratory effort GI: Inspection: Yes normal to inspection Palpation (GI): Soft to palpation, nontender, no guarding and not rigid Neuro: General: patient oriented x3 Extrem: General: Yes no clubbing, cyanosis or edema Objective Data Active Medications Acetaminophen (Acetaminophen 325 Mg Tablet) 650 mg PO QID PRN PRN Reason: headache, temp > 101 Hydromorphone HCl (Hydromorphone Hcl 0.5 Mg/0.5 Ml Syringe) 0.5 mg IVPUSH Q3H PRN; Protocol PRN Reason: Pain, Severe (Pain Scale 7-10) Dextrose/Lactated Ringer's (D5lr) 1,000 mls @ 125 mls/hr IVCONT .Q8H [facility] Last Admin: 04/23/22 06:18 Dose: 125 mls/hr Documented By: HENNY Ondansetron HCl (Ondansetron Hcl 4 Mg/2 Ml Vial) 4 mg IVPUSH Q8H PRN PRN Reason: Nausea Oxycodone HCl (Oxycodone Hcl Immed Release 5 Mg Tablet) 5 mg PO Q6H PRN PRN Reason: Pain, Moderate (Pain Scale 4-6 Pharmacy Consult (Consult Rx Perform Med Rec) 1 each MISCELLANE ONCE PRN PRN Reason: Consult order Sodium Chloride (0.9 % Sodium Chloride Flush 3 Ml Syringe) 3 ml IVFLUSH QSHIFT [facility] Last Admin: 04/23/22 00:18 Dose: Not Given Documented By: HENNY Non-Admin Reason: IV Running Zolpidem Tartrate (Zolpidem Tartrate 5 Mg Tablet) 5 mg PO BEDTIME PRN PRN Reason: Insomnia Labs 04/21/22 05:48 04/21/22 05:48 Labs: Laboratory Results - last 24 hr 04/22/22 04/22/22 05:56 05:56 Absolute Retic 0.085 Percent Retic 1.9 H Immature Retic Fraction 10.4 Retic Hgb Equivalent 36.9 H Lactate Dehydrogenase 182 Microbiology Microbiology Results: Microbiology 04/20/22 22:07 Blood Culture - Preliminary Blood - Venous No growth after 48 hours. 04/20/22 22:07 Blood Culture - Preliminary Blood - Venous No growth after 48 hours. Procedures Date of Service Date of Service: 04/23/22 Progress Note: A&P Assessment and plan (1) Indirect hyperbilirubinemia: Status: Acute (2) Symptomatic cholelithiasis: Status: Acute Plan 22-year-old male patient presenting with complaints of upper abdominal pain after eating a hamburger. Patient was found to have gallstones by CT. LFTs were elevated with indirect hyperbilirubinemia. Patient is now improved and wishes to proceed to a laparoscopic or possible open cholecystectomy To prevent further episodes. After discussion of the procedure, risks, and alternatives, he consents to a laparoscopic or possible open cholecystectomy. He will be added onto the operative schedule for today. Time Spent With Patient Time: Total time managing care of this patient today ____ minutes. Quality Stroke Does the patient have a stroke diagnosis?: No VTE Prior VTE?: No VTE Risk Level:: Surgical - low VTE Device Contraindication: N/A - Device Ordered VTE Drug Contraindication: Treatment Not Indicated
--- NOTE | 2022-04-23 12:18 | MHC.CM.PN ---
T/W MET WITH PATIENT AND MOTHER PER REQUEST PATINT UNSURE WHO IS PCP IS SO THIS SAL[employer]ERSON [employer] SUGGESTED THAT HE CALL THE CUSTOMER SERVICE NUMBER ON THE BACK OF HIS INSURANCE CARD PATIENT DOES NOT HAVE HIS INSURANCE CARD. [employer] PHONE NUMBER AND PATIENT POLICY NUMBER GIVEN.
--- NOTE | 2022-04-23 15:53 | P.OP_ITS ---
Operative Note Operative Note Date of Service: 04/23/22 Narrative: Preoperative diagnosis: Symptomatic cholelithiasis, hyperbilirubinemia Postoperative diagnosis: Same Procedure: Laparoscopic cholecystectomy Surgeon: Conrad Hi MD Floral Arranger: RAUDEL Weiner Anesthesia: General endotracheal Indications for procedure: 22-year-old male patient presenting with acute onset of right upper quadrant abdominal pain found to have an elevated WBC and hyperbilirubinemia. Workup revealed gallstones within the gallbladder. Operative findings: Normal appearing gallbladder with small gallstones within the neck of the gallbladder and cystic duct Specimen: gallbladder Estimated blood loss: less than 2 ml Complications: none Procedure details: Patient was brought to the OR and placed in a supine position. After administering general anesthesia the patient's abdomen was prepped with ChloraPrep and draped in a sterile fashion. Local anesthesia consisting of 0.5% Sensorcaine with epinephrine was infiltrated in a periumbilical region. A 5 mm incision was made above the umbilicus in a transverse fashion. The Veress needle was then inserted while elevating abdominal cavity with towel clips. After positive drop test the abdomen was insufflated to a pressure of 15 mm of mercury. The Veress needle was then removed and a 5 mm trocar inserted. The camera was inserted in the abdomen explored. A 12 mm trocar was then placed in the epigastrium. Two 5 mm trocars placed in the right upper quadrant by the health information assistant. The patient was placed in reverse Trendelenburg positioning and rotated to the left. The gallbladder was grasped with the fundus and retracted cephalad by the health information assistant. The infundibulum was then grasped and retracted away from the liver bed, also by the health information assistant. The Dolphin dissected was then used by the surgeon to dissect the peritoneum off the infundibulum to reveal the junction with the cystic duct. Cystic artery was noted slightly medial and posterior to the cystic duct. After obtaining a critical view the cystic duct was doubly clipped and divided. The cystic artery was then doubly clipped and divided. The gallbladder was then dissected off the liver bed using electrocautery with an L hook. Hemostasis was assured all times using the electrocautery. When the gallbladder is completely dissected off the liver bed was placed in an Endo-Catch bag and brought out through the epigastric incision. The gallbladder was sent to pathology for further examination. The abdomen was then re-examined. The liver bed was irrigated and suctioned dry. No bleeding or bile leak could be identified. CO2 was then evacuated and all trocars removed. Skin was closed in all incisions using a subcuticular 4 0 Polysorb suture by both the surgeon and health information assistant. Sterile dressings consisting of Steri-Strips, 2 x 2 gauze, and Tegaderm were then applied. The patient tolerated the procedure well. Sponge instrument and needle counts reported as correct. The patient was transferred to PACU in stable condition.
[2022-04-23] MEDS: fentaNYL citrate/PF 100 MCG/2 ML VIAL 25 MCG IVPUSH ×2 (16:35→16:50)
[2022-04-23 19:29] LABS: Haptoglobin 93 mg/dL (43-212)
[2022-04-23] MEDS: oxyCODONE HCl Immed Release 5 MG TABLET PO (19:40)
[2022-04-23] MEDS: 0.9 % Sodium Chloride Flush 3 ML SYRINGE IVFLUSH (23:11)
[2022-04-24 00:05] VITALS: BP 140/65; PULSE 59; RESP 18; TEMP 36.9; O2SAT 96
[2022-04-24] MEDS: HYDROmorphone HCl 0.5 MG/0.5 ML SYRINGE IVPUSH (00:15)
[2022-04-24 03:43] VITALS: BP 132/62; PULSE 60; RESP 18; TEMP 36.4; O2SAT 97
--- NOTE | 2022-04-24 07:39 | PM.PNGS ---
Subjective Subjective Date of Service: 04/24/22 Patient reports: no new complaints, feels better, tolerating a regular diet and bowel movement Physical Exam Vital Signs: Vital Signs: Last Vital Signs Temp 97.5 F 04/24/22 03:43 Pulse 60 04/24/22 03:43 Resp 18 04/24/22 03:43 BP 132/62 04/24/22 03:43 Pulse Ox 97 04/24/22 03:43 O2 Del Method 04/24/22 03:43 O2 Flow Rate 2 04/23/22 17:13 BMI result Body Mass Index 40.7 Const: General: healthy appearing and comfortable Nutritional Appearance: well nourished Orientation/consciousness: patient oriented x3 Limitations: no limitations Resp: Effort & Inspection: normal respiratory effort GI: Inspection: Yes normal to inspection and Yes incision (clean, dry and intact) Palpation (GI): Soft to palpation, not firm, nontender and no guarding Skin: General skin exam: no rashes or lesions noted Neuro: General: patient oriented x3 Extrem: General: Yes normal to inspection Objective Data Active Medications Acetaminophen (Acetaminophen 325 Mg Tablet) 650 mg PO QID PRN PRN Reason: headache, temp > 101 Fentanyl (Fentanyl Citrate/Pf 100 Mcg/2 Ml Vial) 25 mcg IVPUSH Q5M PRN; Protocol PRN Reason: Pain, Moderate (Pain Scale 4-6 Last Admin: 04/23/22 16:50 Dose: 25 mcg Documented By: PATRICIO Hydromorphone HCl (Hydromorphone Hcl 0.5 Mg/0.5 Ml Syringe) 0.5 mg IVPUSH Q3H PRN; Protocol PRN Reason: Pain, Severe (Pain Scale 7-10) Last Admin: 04/24/22 00:15 Dose: 0.5 mg Documented By: EUGENIORISAlyssa Hydromorphone HCl (Hydromorphone Hcl 0.5 Mg/0.5 Ml Syringe) 0.25 mg IVPUSH Q5M PRN; Protocol PRN Reason: Pain, Severe (Pain Scale 7-10) Promethazine HCl 6.25 mg/ (Sodium Chloride) 50.25 mls @ 201 mls/hr IV ONCE PRN PRN Reason: Nausea and Vomiting Ondansetron HCl (Ondansetron Hcl 4 Mg/2 Ml Vial) 4 mg IVPUSH Q8H PRN PRN Reason: Nausea Oxycodone HCl (Oxycodone Hcl Immed Release 5 Mg Tablet) 5 mg PO Q6H PRN PRN Reason: Pain, Moderate (Pain Scale 4-6 Last Admin: 04/23/22 19:40 Dose: 5 mg Documented By: HENNY Pharmacy Consult (Consult Rx Perform Med Rec) 1 each MISCELLANE ONCE PRN PRN Reason: Consult order Sodium Chloride (0.9 % Sodium Chloride Flush 3 Ml Syringe) 3 ml IVFLUSH QSHIFT [facility] Last Admin: 04/23/22 23:11 Dose: 3 ml Documented By: HENNY Zolpidem Tartrate (Zolpidem Tartrate 5 Mg Tablet) 5 mg PO BEDTIME PRN PRN Reason: Insomnia Labs 04/21/22 05:48 04/21/22 05:48 Labs: Laboratory Results - last 24 hr 04/22/22 05:56 Haptoglobin 93 Procedures Date of Service Date of Service: 04/24/22 Progress Note: A&P Assessment and plan (1) Symptomatic cholelithiasis: Status: Acute (2) Indirect hyperbilirubinemia: Status: Acute (3) Cholelithiasis with biliary obstruction: Status: Acute Plan Patient doing well POD #1 s/p lap cholecystectomy. Wounds are clean and intact without redness or discharge. He feels ready for discharge. Will follow up in office in 1 week. He should avoid lifting > 10 pounds for two weeks and avoid fried/fatty foods for one month. Time Spent With Patient Time: Total time managing care of this patient today ____ minutes. Quality Stroke Does the patient have a stroke diagnosis?: No VTE Prior VTE?: No VTE Risk Level:: Surgical - low VTE Device Contraindication: N/A - Device Ordered VTE Drug Contraindication: Treatment Not Indicated
[2022-04-24 07:53] VITALS: BP 124/72; PULSE 67; RESP 18; TEMP 36.6; O2SAT 93
--- NOTE | 2022-04-24 08:06 | MHC.CM.PN ---
PLAN IS DC HOME - SELF CARE. RN AWARE OF PLAN. FAMILY TO TRANSPORT.
--- NOTE | 2022-04-24 09:39 | PM.DS ---
DS: Providers Provider Date of Service: 04/24/22 Date of admission: 04/20/22 21:43 Date of discharge: 04/24/22 Primary care physician: Rodri Oliva MD Consults: 04/20/22 21:34 Consult to General Surgery Stat Consulting Provider: Conrad Hi Reason for consultation: Cholelithiasis 04/21/22 08:35 Consult to Gastroenterology Routine Consulting Provider: Haritha Pabon Reason for consultation: Possible CBD stone DS: Diagnosis Discharge Diagnosis (1) Symptomatic cholelithiasis: Status: Acute (2) Indirect hyperbilirubinemia: Status: Acute (3) Cholelithiasis with biliary obstruction: Status: Acute DS: Summary Hospital Course Hospital Course: HPI AT ADMISSION: Ginette Regalado is a 22 year old male Presenting with complaints of epigastric and right upper quadrant pain.? The pain began approximately an hour after eating a hamburger yesterday.? Pain was described as sharp and nonradiating located mainly in the epigastrium, 10/10 in severity.? He denies any previous episodes of similar pain in the past.? Pain was not associated with nausea, vomiting but was associated with chills and low-grade fever.? He subsequently presented to the emergency department was noted to be tender in the quadrant.? Laboratories revealed an elevated WBC and elevated bilirubin and transaminases.? CT abdomen and pelvis revealed multiple gallstones within the gallbladder with no evidence of wall thickening or pericholecystic fluid.? A possible common bile duct stone is noted to my reading of the exam at the distal common bile duct.? This morning the patient does feel improved with minimal abdominal pain.? Repeat laboratories show an improvement in the bilirubin level and normalization of transaminases. HOSPITAL COURSE: ?The patient was admitted to the surgical service for further treatment of the symptomatic cholelithiasis and work up of his elevated liver function tests. MRCP was recommended to evaluate for common bile duct stone however the service is not available over the weekend.? Gastroenterology was consulted for their assessment and LFTs were trended.? It was recommended to proceed with laparoscopic or possible open cholecystectomy following clearing of the CBD. The following day, he felt improved and was asymptomatic in regards to abdominal pain. GI thought the patient had nonobstructive jaundice given normal transaminases including ALP and nondilated ducts on imaging and suspected benign indirect hyperbilirubinemia possibly from Monitor. Labs were ordered by them to rule out hemolysis which were WNL. ABD US was also obtained as MRI was not available which showed no significant common bile duct dilatation to suggest choledocholithiasis. A laparoscopic cholecystectomy was performed by Dr. Hi on 04/23/22 without complication. The patient tolerated the procedure well. He had an uncomplicated recovery course. On POD #1, he was tolerating a solid diet, had adequate pain control, was ambulating without difficulty and had a benign abd exam with appropriate post op tenderness and clean dressings. He felt ready for discharge. He was discharged to home on 04/24/22 in stable condition. He is to follow up in [address] Hi. Status at Discharge Functional status at discharge: independent ambulation Overall status at discharge: patient is progressing back to baseline Time Spent with Patient Time attestation: Total time managing care of this patient today ____ minutes. Discharge coordination time: Less than 30 minutes Quality: Safe Use of Opioids Does Pt have an Active Cancer Diagnosis on the Problem List?: No Quality: Stroke Does the patient have a stroke diagnosis?: No Physical Exam Vital Signs: Vital Signs: Last Vital Signs Temp 97.8 F 04/24/22 07:53 Pulse 67 04/24/22 07:53 Resp 18 04/24/22 07:53 BP 124/72 04/24/22 07:53 Pulse Ox 93 04/24/22 07:53 O2 Del Method 04/24/22 07:53 O2 Flow Rate 2 04/23/22 17:13 BMI result Body Mass Index 40.7 Const: General: comfortable, no acute distress and alert Orientation/consciousness: patient oriented x3 Resp: Effort & Inspection: normal respiratory effort GI: Inspection: No distended and Yes incision (dressings intact) Palpation (GI): Soft to palpation, Tenderness to palpation present (GI) (mild, incisional), no guarding and not rigid Percussion: Yes normal to percussion Skin: General skin exam: no rashes or lesions noted and no jaundice Neuro: General: patient oriented x3 and moves all extremities DS: Data Data Completed and Pending Pending studies at discharge: Pending at discharge 04/23/22 15:45 Surgical [PTH] Routine Labs on day of discharge: Laboratory Results - last 24 hr 04/22/22 05:56 Haptoglobin 93 Preliminary micro results at discharge 04/20/22 22:07 Blood Culture - Preliminary Blood - Venous No growth after 48 hours. 04/20/22 22:07 Blood Culture - Preliminary Blood - Venous No growth after 48 hours. Discharge Plan Discharge Anticipated Discharge Date/Time: 04/24/22 07:36 Patient Disposition: Home, Self-Care Discharge Diagnosis: Symptomatic cholelithiasis Referrals: Conrad Hi MD [Physician] - 1 Week Rodri Oliva MD [Primary Care Provider] - 1 Week Discharge Medications: New oxycodone 5 mg tablet 5 mg PO Q6H PRN (Reason: pain (scale score 7-10)) Qty: 15 0RF Rx Instructions: Partial Fill upon patient request. Discharge Orders: Discharge Order (Routine); Ordered 04/24/22 Ordered By: Conrad Hi Diet: Low fat, low cholesterol Activity on Discharge: No heavy lifting Stand Alone Forms: Patient Portal Discharge page, Work/School Release Activity Restrictions/Additional Instructions: No lifting > 10 pounds for 2 weeks No driving for one week Ice to the incision x 24 hours Remove dressing in 3 days Follow up in office in one week. Care Plan Goals: return to normal diet and activity Health Concerns: abdominal pain in upper abdomen Plan of Treatment: laparoscopic cholecystectomy Assessment: Symptomatic cholelithiasis; hyperbilirubinemia Patient Instructions: Low Fat Diet (DC), Laparoscopic Cholecystectomy (DC) Discharge Date/Time: 04/24/22 09:40
--- NOTE | 2022-04-24 13:23 | HO.POSTANES ---
Post Anesthesia Evaluation Post Anesthesia Evaluation Vital Signs: Vital Signs Temp Pulse Resp BP Pulse Ox O2 Del Method 04/24/22 07:53 97.8 F 67 18 124/72 93 Room Air 04/24/22 03:43 97.5 F 60 18 132/62 97 Room Air Anesthesia: General Endotracheal-GETA Mental Status: Awake Pain Control: Satisfactory Nausea/Vomiting: None Hydration: Adequate Anesthesia-Related Issues: No Anes. Related Issues
== END 2022-04-24 09:40 | disposition home or self-care (01) | DRG 263 ==
LOC: HO.ED 22:44 → HO.EDOVER 23:09 → HO.S3 04-21 03:37
PROVIDERS: Internal Medicine; Nurse Practitioner Family; Physician Assistant Medical; Admitting Provider Surgery; Emergency Provider Emergency Medicine; PCP Internal Medicine; Visit Provider Surgery
PROC: 0FT44ZZ Resection of Gallbladder, Percutaneous Endoscopic Approach (ICD-10-PCS; CPT 47562; principal; 2022-04-23 14:40)
DX: K80.71 Calculus of gallbladder and bile duct without cholecystitis with obstruction (principal); E66.9 Obesity, unspecified; Z68.41 Body mass index [BMI] 40.0-44.9, adult; E80.4 Gilbert syndrome
CPT/HCPCS: 47562; 0241U; 36415; 74177; 76705; 80048; 80053; 80076; 83010; 83605; 83615; 83690; 83735; 85025; 85045; 87040; 88304; 99285; J0692; J0696; J1170; J2250; J2270; J2405; J3010; Q9967

== ENCOUNTER → 2022-05-03 09:45 | Outpatient (BNVA) | payer OTHER, SELFPAY | PROVIDERS: PCP Internal Medicine; Referring Provider Internal Medicine; Visit Provider Surgery | DX: Z13.89 Encounter for screening for other disorder (principal) ==